=== PATIENT | female | born 1980 | race Two or more races ===

== ENCOUNTER 2017-02-15 04:17 | Emergency (ER) | payer MEDICAID ==
[~2017-02-15] VITALS: Ht 160 cm; Wt 65.0 kg
[2017-02-15] MEDS ORDERED: SODIUM CHLORIDE 0.9% 1,000ML IVBOLUS ONE (05:00)
[2017-02-15] MEDS ORDERED: SODIUM CHLORIDE FLUSH 10ML SYR IVF ONE (05:00)
[2017-02-15 05:35] LABS: HEMATOCRIT 37.8 % (34.6-47.8); HEMOGLOBIN 12.7 g/dL (11.7-16.4); WHITE BLOOD COUNT 7.2 x10^3/uL (3.4-10)
[2017-02-15 05:39] LABS: DAU SCREEN DISCLAIMER
[2017-02-15 05:49] LABS: BLOOD UREA NITROGEN 15 mg/dL (7-18)
[2017-02-15 05:52] LABS: ASPARTATE AMINO TRANSFERASE 20 U/L (15-37)
[2017-02-15 07:08] VITALS: BP 124/67
== END 2017-02-15 07:10 | disposition home or self-care (01) ==
LOC: ED 05:51
DX: R56.9 Unspecified convulsions (principal)
CPT/HCPCS: 36415; 70450; 80053; 80307; 81003; 85025; 93005; 96360; 99285; J7030